=== PATIENT | male | born 1950 | race Caucasian/White ===

== ENCOUNTER → 2017-06-23 | Outpatient (CLI) | payer MEDICARE, OTHER ==
[2017-06-23 11:18] LABS: WESTERGREN SEDIMENTATION RATE 88 mm/hr (0-20)
[2017-06-23 11:42] LABS: RHEUMATOID FACTOR SCREEN NEGATIVE (NEGATIVE); RHEUMATOID FACTOR TRIGGER LESS THAN 10.0 IU/ML (0.0-14.9)
[2017-06-26 16:23] LABS: ANA SCREEN NEG (NEG)
== END ==
LOC: CLAB 10:26
DX: M25.50 Pain in unspecified joint (principal)
CPT/HCPCS: 36415; 85652; 86038; 86140; 86430; 99213

== ENCOUNTER → 2017-07-04 | Outpatient (CLI) | payer MEDICARE, OTHER ==
[~2017-07-04] MED LIST: LIPI20TA PO; MEDR4PAK PO; MELO15TA20 PO; NAPR500T2 PO; PAXI10TA8 PO; PRED5TAB PO; PRIL20TA2 PO
[2017-07-04 15:34] LABS: AST (GOT) 17 U/L (15-37); BLOOD UREA NITROGEN 25 MG/DL (7-18); CALCIUM 9.3 MG/DL (8.5-10.1); CHLORIDE 104 MEQ/L (98-107); CREATININE 1.16 MG/DL (0.60-1.30); GLOMERULAR FILTRATION RATE 63 ML/MIN (>89); GLUCOSE,FASTING 88 MG/DL (74-99); SODIUM (NA) 142 MEQ/L (136-145)
[2017-07-04 15:37] LABS: ALKALINE PHOSPHATASE 86 U/L (45-117); ALT (GPT) 15 U/L (12-78); TOTAL BILIRUBIN ADULT 0.3 MG/DL (0.2-1.0); TOTAL PROTEIN 8.1 GM/DL (6.4-8.2)
== END ==
LOC: CLAB 14:52
PROVIDERS: ATTEND Family Medicine
DX: M35.3 Polymyalgia rheumatica (principal)
CPT/HCPCS: 36415; 80053

== ENCOUNTER → 2017-08-16 | Day surgery (SDC) | payer MEDICARE, OTHER ==
[~2017-08-16] VITALS: Ht 193 cm; Wt 121.1 kg
[~2017-08-16] MED LIST changes: +CHLORHEXIDINE GLUCONATE 2 % 1 PACK (2 CLOTHS) TOPICAL PRN; +DO NOT ADM ANY ANTICOAGULANT DRUGS PRN; +LACTATED RINGER'S 1000 ML IV PRN; +LIDOCAINE HCL 1% PF 5 ML SYRINGE OTHER ONE; -MEDR4PAK PO; -MELO15TA20 PO; +METOPROLOL TARTRATE 25 MG TAB PO PRN; +MIDAZOLAM HCL 2 MG/2 ML VIAL ONE; -NAPR500T2 PO; +ONDANSETRON HCL 4 MG/2 ML VIAL IV ONE; +ONDANSETRON HCL 4 MG/2 ML VIAL IV PUSH PRN; +PARO30TA2 PO; -PAXI10TA8 PO; +PERC5TAB12 PO; +POVIDONE IODINE 5% (ANTISEPSIS KIT) 4 APPLICATIONS EACH NARE PRN; +PROPOFOL 200 MG/20 ML AMP IV ONE; +SODIUM CHLORID 0.9% 500 ML IV PRN; +methylPREDNISolone SOD SUCC 125 MG/2 ML VIAL ONE; +oxyCODONE/ACETAMINOPHEN 5 MG/325 MG TAB PO PRN
[2017-08-16 07:44] LABS: AUTOMATED NEUTROPHIL # 5.6 TH/MM3 (1.8-7.7); BASOPHIL % 0.1 % (0.0-2.0); EOSINOPHIL % 0.4 % (0.0-4.0); HEMATOCRIT 42.3 % (39.0-51.0); HEMOGLOBIN 14.3 GM/DL (13.0-17.0); LYMPH % 8.9 % (9.0-44.0); LYMPHOCYTE # 0.6 TH/MM3 (1.0-4.8); MEAN CELL VOLUME 101.8 FL (80.0-100.0); MEAN CORPUSCULAR HEMOGLOBIN 34.5 PG (27.0-34.0); MEAN CORPUSCULAR HGB CONC 33.9 % (32.0-36.0); MEAN PLATELET VOLUME 8.4 FL (7.0-11.0); MONO % 6.4 % (0.0-8.0); MONOCYTE # 0.4 TH/MM3 (0-0.9); NEUT % 84.2 % (16.0-70.0); PLATELET COUNT 187 TH/MM3 (150-450); RED BLOOD COUNT 4.16 MIL/MM3 (4.50-5.90); RED CELL DISTRIBUTION WIDTH 16.6 % (11.6-17.2); WHITE BLOOD COUNT 6.6 TH/MM3 (4.0-11.0)
--- NOTE | 2017-08-16 07:51 | RADRPT ---
EXAM DATE/TIME: 08/16/2017 07:17 [facility] COMPARISON: No previous studies available for comparison. INDICATIONS : Pre op left side ESWL. MEDICAL HISTORY : None. SURGICAL HISTORY : None. ENCOUNTER: Initial ACUITY: 1 day PAIN SCORE: 0/10 LOCATION: Left Abdomen FINDINGS: Stool overlies the kidneys making it difficult to identify discrete calculi. CONCLUSION: Renal calculi not clearly visualized. Gregory Carranza MD on August 16, 2017 at 7:48 Board Certified Radiologist. This report was verified electronically.
--- NOTE | 2017-08-16 10:31 | PD.OP ---
Operative Report Date of Surgery: Aug 16, 2017 Preoperative Diagnosis: (1) Renal calculus, left Postoperative Diagnosis: (1) Renal calculus, left Procedure: Extracorporeal shockwave lithotripsy left renal calculus Anesthesia: General Surgeon: Mohan Hester Quarantine Inspector(s): None Operation and Findings: Indication for procedure: Case of a pleasant 66-year-old gentleman with a 9 mm left renal calculus who presents today to undergo shockwave lithotripsy. Operative procedure in detail: Patient was brought to the operating room suite and placed supine on the lithotripsy table. He was then placed under general anesthesia. After appropriate timeout was undertaken I proceeded with localizing the patient's left renal calculus with fluoroscopy. The patient subsequently underwent extracorporeal shockwave lithotripsy utilizing the [employer] mobile lithotripsy unit. The patient received a total of 3000 shocks with a maximum power level setting of 6. At the conclusion of the procedure the stone spread out considerably consistent with fragmentation. He tolerated the procedure without complications and was transferred to the PACU in satisfactory condition. Mohan Hester MD Aug 16, 2017 10:30
[2017-08-16 11:40] VITALS: BP 136/70; PULSE 70; RESP 18; TEMP 97.4; O2SAT 96
--- NOTE | 2017-08-16 23:02 | EKG ---
Date Performed: 08/16/2017 Time Performed: 07:08:44 PTAGE: 66 years EKG: Sinus rhythm RIGHT BUNDLE BRANCH BLOCK ABNORMAL ECG NO PREVIOUS TRACING DOCTOR: Luisito Subramanian Interpretating Date/Time 08/16/2017 23:01:35
== END | disposition home or self-care (01) ==
LOC: EDUNIT# 06-28 07:30 → HSDC 06:31
PROVIDERS: ATTEND Urology
DX: N20.0 Calculus of kidney (principal); I45.10 Unspecified right bundle-branch block; R94.31 Abnormal electrocardiogram [ECG] [EKG]
CPT/HCPCS: 00873; 50590; 74018; 85025; 93005; J2250; J2405; J2930; J3010; J7120

== ENCOUNTER 2017-08-18 21:26 | Emergency (ER) | payer MEDICARE, OTHER ==
[~2017-08-18] VITALS: Ht 193 cm; Wt 115.0 kg
[~2017-08-18 21:26] MED LIST changes: -CHLORHEXIDINE GLUCONATE 2 % 1 PACK (2 CLOTHS) TOPICAL PRN; -DO NOT ADM ANY ANTICOAGULANT DRUGS PRN; -LACTATED RINGER'S 1000 ML IV PRN; -LIDOCAINE HCL 1% PF 5 ML SYRINGE OTHER ONE; -METOPROLOL TARTRATE 25 MG TAB PO PRN; -MIDAZOLAM HCL 2 MG/2 ML VIAL ONE; -ONDANSETRON HCL 4 MG/2 ML VIAL IV ONE; -ONDANSETRON HCL 4 MG/2 ML VIAL IV PUSH PRN; -POVIDONE IODINE 5% (ANTISEPSIS KIT) 4 APPLICATIONS EACH NARE PRN; -PROPOFOL 200 MG/20 ML AMP IV ONE; -SODIUM CHLORID 0.9% 500 ML IV PRN; -methylPREDNISolone SOD SUCC 125 MG/2 ML VIAL ONE; -oxyCODONE/ACETAMINOPHEN 5 MG/325 MG TAB PO PRN
[2017-08-18 21:44] VITALS: BP 147/84; PULSE 70; RESP 18; TEMP 97.8; O2SAT 97
[2017-08-18 22:39] VITALS: BP 160/83; PULSE 60; RESP 18; O2SAT 98
[2017-08-18] MEDS ORDERED: SODIUM CHLOR 0.9% 1000 ML INJ 1,000 ML IV SCH (22:50)
[2017-08-18] MEDS ORDERED: KETOROLAC TROMETHAMINE 30 MG/ML (IVP) VIAL IVP ONE (23:00)
[2017-08-18] MEDS ORDERED: SODIUM CHLORIDE 0.9% FLUSH 10 ML FLUSH IV FLUSH PRN (23:00)
[2017-08-18] MEDS ORDERED: ONDANSETRON HCL 4 MG/2 ML VIAL IVP ONE (23:00)
[2017-08-18] MEDS ORDERED: MORPHINE SULFATE 4 MG/ML INJ IV PUSH ONE (23:00)
[2017-08-19 00:13] LABS: AUTOMATED NEUTROPHIL # 10.5 TH/MM3 (1.8-7.7); BASOPHIL % 0.1 % (0.0-2.0); HEMATOCRIT 47.3 % (39.0-51.0); HEMOGLOBIN 15.9 GM/DL (13.0-17.0); LYMPH % 3.4 % (9.0-44.0); LYMPHOCYTE # 0.4 TH/MM3 (1.0-4.8); MEAN CELL VOLUME 102.3 FL (80.0-100.0); MEAN CORPUSCULAR HEMOGLOBIN 34.4 PG (27.0-34.0); MEAN CORPUSCULAR HGB CONC 33.6 % (32.0-36.0); MEAN PLATELET VOLUME 9.2 FL (7.0-11.0); MONO % 7.2 % (0.0-8.0); MONOCYTE # 0.8 TH/MM3 (0-0.9); NEUT % 89.3 % (16.0-70.0); PLATELET COUNT 192 TH/MM3 (150-450); RED BLOOD COUNT 4.63 MIL/MM3 (4.50-5.90); RED CELL DISTRIBUTION WIDTH 16.4 % (11.6-17.2); WHITE BLOOD COUNT 11.8 TH/MM3 (4.0-11.0)
[2017-08-19 00:36] LABS: ALBUMIN 3.9 GM/DL (3.4-5.0); ALT (GPT) 37 U/L (12-78); AST (GOT) 20 U/L (15-37); BICARBONATE 28.3 MEQ/L (21.0-32.0); BLOOD UREA NITROGEN 22 MG/DL (7-18); CALCIUM 9.5 MG/DL (8.5-10.1); CHLORIDE 101 MEQ/L (98-107); CREATININE 1.68 MG/DL (0.60-1.30); GLOMERULAR FILTRATION RATE 41 ML/MIN (>89); GLUCOSE,RANDOM 171 MG/DL (74-106); SODIUM (NA) 140 MEQ/L (136-145)
[2017-08-19 00:39] LABS: ALKALINE PHOSPHATASE 101 U/L (45-117); TOTAL BILIRUBIN ADULT 0.6 MG/DL (0.2-1.0); TOTAL PROTEIN 8.1 GM/DL (6.4-8.2)
--- NOTE | 2017-08-19 00:48 | RADRPT ---
EXAM DATE/TIME: 08/18/2017 23:48 [facility] COMPARISON: No previous studies available for comparison. INDICATIONS : Left flank pain post lithotripsy two days ago. ORAL CONTRAST: No oral contrast ingested. RADIATION DOSE: 29.15 CTDIvol (mGy) ; Patient body habitus MEDICAL HISTORY : Renal calculi. Carcinoma, prostate. Hernia, inguinal. SURGICAL HISTORY : Prostatectomy. ENCOUNTER: Initial ACUITY: 1 day PAIN SCALE: 6/10 LOCATION: Left flank TECHNIQUE: Volumetric scanning of the abdomen and pelvis was performed. Using automated exposure control and ad justment of the mA and/or kV according to patient size, radiation dose was kept as low as reasonably achievable to obtain optimal diagnostic quality images. DICOM format image data is available electro nically for review and comparison. FINDINGS: LOWER LUNGS: Linear atelectasis or scarring posteriorly in both lung bases. LIVER: Punctate hypodensity in the left hepatic lobe is most characteristic of a benign cyst. Granulomatous type calcification in the right hepatic lobe.. There is no dilation of the biliary tree. No calcifi ed gallstones. SPLEEN: Normal size without lesion. Granulomatous type calcifications PANCREAS: Within normal limits. KIDNEYS: Bilateral sub-centimeter renal calculi. On the left, there is some perinephric stranding and pelvocal iectasis of the collecting system with some hydroureter. A series of stones in the left distal ureter with the more proximal stone measuring approximately 4 mm in diameter and a second stone just above the UVJ measuring approximately 5 mm in diameter.. ADRENAL GLANDS: Within normal limits. VASCULAR: There is no aortic aneurysm. BOWEL/MESENTERY: The stomach, small bowel, and colon demonstrate no acute abnormality. There is no free intraperitone al air or fluid. Severe diverticular disease of the descending and sigmoid colon without concomitant evidence of diverticulitis. ABDOMINAL WALL: Within normal limits. RETROPERITONEUM: There is no lymphadenopathy. BLADDER: No wall thickening or mass. REPRODUCTIVE: Patient appears to have had a prostatectomy. INGUINAL: There is no lymphadenopathy or hernia. MUSCULOSKELETAL: Within normal limits for patient age. CONCLUSION: 1. Bilateral subcentimeter renal calculi, left greater than right. 2. Perinephric stranding on the left may be associated with the recent lithotripsy. However, there is also some pelvocaliectasis and hydroureter with a series of 2 stones in the distal left ureter. More proximal stone at the level of the acetabulum measures 4 mm with a distal stone just proximal to the UVJ measuring 5 mm. 3. Severe diverticular disease of the descending and sigmoid colon without diverticulitis. 4. Probable sub-centimeters cyst in the left hepatic lobe. Justice Pedraza MD on August 19, 2017 at 0:40 Board Certified Radiologist. This report was verified electronically.
[2017-08-19 00:54] LABS: BILIRUBIN, URINE NEG (NEG); BLOOD, URINE MOD (NEG); GLUCOSE,URINE NEG (NEG); KETONE, URINE NEG (NEG); MUCUS URINE FEW /lpf (OCC); NITRITE,URINE NEG (NEG); PH, URINE 5.5 (5.0-8.5); URINE COLOR YELLOW (YELLW/STRAW); URINE LEUKOCYTE ESTERASE NEG (NEG)
[2017-08-19 00:57] VITALS: BP 118/71; PULSE 61; RESP 18; O2SAT 97
--- NOTE | 2017-08-19 01:58 | PD ---
HPI Chief Complaint: Flank/Kidney Pain Time Seen by Provider: 22:40 Travel History International Travel<30 days: No Contact w/Intl Traveler<30days: No Traveled to known affect area: No History of Present Illness HPI Patient is a 66 year old male who comes in complaining of left flank pain. He had lithotripsy performed on Monday and says he was feeling ok until today when he started to have sharp pains to his left flank. He has a prescription for Percocet which she has not filled yet. He has just been taking Tylenol for pain. However the pain got so bad this afternoon that he took half of 1 of his 's Percocets from a previous surgery. He has had some nausea and vomiting. He denies no fever or chills. He says he has noticed several small stones in his urine. Severity is moderate. PFSH Past Medical History Cancer: Yes (PROSTATE) Cardiovascular Problems: No Diabetes: No Diminished Hearing: No Endocrine: No Gastrointestinal Disorders: Yes (GERD) Genitourinary: No Hepatitis: No Hiatal Hernia: Yes Immune Disorder: Yes (POLYMYALGIA RHUEMATICA) Musculoskeletal: Yes (JOINT PAIN) Neurologic: No Psychiatric: Yes (OCD) Reproductive: No Respiratory: No Thyroid Disease: No Tetanus Vaccination: < 5 Years Influenza Vaccination: No Past Surgical History Abdominal Surgery: Yes (UMBILICAL AND INGUINAL HERNIA REPAIR) AICD: No Cardiac Surgery: No Ear Surgery: No Endocrine Surgery: No Eye Surgery: No Genitourinary Surgery: Yes (PROSTATE REMOVAL) Joint Replacement: No Pacemaker: No Thoracic Surgery: No Other Surgery: Yes (lithotrosy) Social History Alcohol Use: No Tobacco Use: No Substance Use: No Allergies-Medications (Allergen,Severity, Reaction): Coded Allergies: oseltamivir (Unverified Allergy, Unknown, swelling in lips, 08/18/17) Reported Meds & Prescriptions Reported Meds & Active Scripts Active Prednisone 5 Mg Tab 15 Mg PO DAILY Take 3 tablets (15 mg) PO daily. Prilosec (Omeprazole Magnesium) 20 Mg Tab 1 Tab PO DAILY Lipitor (Atorvastatin Calcium) 20 Mg Tab 20 Mg PO HS Reported Paroxetine (Paroxetine HCl) 30 Mg Tab 30 Mg PO DAILY Review of Systems Except as stated in HPI: all other systems reviewed are Neg General / Constitutional: No: Fever, Chills HENT: No: Headaches, Lightheadedness Cardiovascular: No: Chest Pain or Discomfort Respiratory: No: Shortness of Breath Gastrointestinal: Positive: Nausea Genitourinary: Positive: Flank Pain Musculoskeletal: No: Edema Skin: No Rash, No Itching, No Change in Pigmentation Neurologic: No: Weakness, Dizziness Physical Exam Narrative GENERAL: Awake and alert, in no acute distress. SKIN: Focused skin assessment warm/dry. No wounds or signs of infection. HEAD: Atraumatic. Normocephalic. EYES: Pupils equal and round. No scleral icterus. ENT: No nasal bleeding or discharge. Mucous membranes pink and moist. NECK: Trachea midline. No JVD. CARDIOVASCULAR: Regular rate and rhythm. No murmur appreciated. RESPIRATORY: No accessory muscle use. Clear to auscultation. Breath sounds equal bilaterally. GASTROINTESTINAL: Abdomen soft, non-tender, nondistended. Mild left CVA tenderness. MUSCULOSKELETAL: No obvious deformities. No clubbing. No cyanosis. No edema. NEUROLOGICAL: Awake and alert. No obvious cranial nerve deficits. Motor grossly within normal limits. Normal speech. PSYCHIATRIC: Appropriate mood and affect; insight and judgment normal. Data Data Last Documented VS Vital Signs Date Time Temp Pulse Resp B/P (MAP) Pulse Ox O2 Delivery O2 Flow Rate FiO2 08/19/17 00:57 61 18 118/71 (87) 97 08/18/17 22:39 Room Air 08/18/17 21:44 97.8 Orders Orders Complete Blood Count With Diff (08/18/17 22:50) Comprehensive Metabolic Panel (08/18/17 22:50) Urinalysis - C+S If Indicated (08/18/17 22:50) Ct Abd/Pel W/O Iv Contrast (08/18/17 22:50) Iv Access Insert/Monitor (08/18/17 22:50) Ecg Monitoring (08/18/17 22:50) Oximetry (08/18/17 22:50) Morphine Inj (Morphine Inj) (08/18/17 23:00) Ondansetron Inj (Zofran Inj) (08/18/17 23:00) Sodium Chlor 0.9% 1000 Ml Inj (Ns 1000 M (08/18/17 22:50) Sodium Chloride 0.9% Flush (Ns Flush) (08/18/17 23:00) Ketorolac Inj (Toradol Inj) (08/18/17 23:00) Labs Laboratory Tests Test 08/18/17 23:20 08/19/17 00:14 White Blood Count 11.8 TH/MM3 Red Blood Count 4.63 MIL/MM3 Hemoglobin 15.9 GM/DL Hematocrit 47.3 % Mean Corpuscular Volume 102.3 FL Mean Corpuscular Hemoglobin 34.4 PG Mean Corpuscular Hemoglobin Concent 33.6 % Red Cell Distribution Width 16.4 % Platelet Count 192 TH/MM3 Mean Platelet Volume 9.2 FL Neutrophils (%) (Auto) 89.3 % Lymphocytes (%) (Auto) 3.4 % Monocytes (%) (Auto) 7.2 % Eosinophils (%) (Auto) 0.0 % Basophils (%) (Auto) 0.1 % Neutrophils # (Auto) 10.5 TH/MM3 Lymphocytes # (Auto) 0.4 TH/MM3 Monocytes # (Auto) 0.8 TH/MM3 Eosinophils # (Auto) 0.0 TH/MM3 Basophils # (Auto) 0.0 TH/MM3 CBC Comment DIFF FINAL Differential Comment Blood Urea Nitrogen 22 MG/DL Creatinine 1.68 MG/DL Random Glucose 171 MG/DL Total Protein 8.1 GM/DL Albumin 3.9 GM/DL Calcium Level 9.5 MG/DL Alkaline Phosphatase 101 U/L Aspartate Amino Transf (AST/SGOT) 20 U/L Alanine Aminotransferase (ALT/SGPT) 37 U/L Total Bilirubin 0.6 MG/DL Sodium Level 140 MEQ/L Potassium Level 3.8 MEQ/L Chloride Level 101 MEQ/L Carbon Dioxide Level 28.3 MEQ/L Anion Gap 11 MEQ/L Estimat Glomerular Filtration Rate 41 ML/MIN Urine Color YELLOW Urine Turbidity CLEAR Urine pH 5.5 Urine Specific [place] 1.025 Urine Protein NEG mg/dL Urine Glucose (UA) NEG mg/dL Urine Ketones NEG mg/dL Urine Occult Blood MOD Urine Nitrite NEG Urine Bilirubin NEG Urine Urobilinogen LESS THAN 2.0 MG/DL Urine Leukocyte Esterase NEG Urine RBC 24 /hpf Urine WBC 1 /hpf Urine Mucus FEW /lpf Microscopic Urinalysis Comment CULT NOT INDICATED MDM Medical Decision Making Medical Screen Exam Complete: Yes Emergency Medical Condition: Yes Medical Record Reviewed: Yes Differential Diagnosis UTI vs renal stone vs pyelonephritis Narrative Course Patient is a 66 year old male who comes in complaining of left flank pain after lithotripsy performed Monday. Exam shows mild left CVA tenderness. IV established, labs sent. Labs show a Cr of 1.68. Urinalysis is negative for UTI. CT abd/pelvis shows two stones obstructing the left ureter. Last 48 hours Impressions Abdomen/Pelvis CT 08/18/17 2250 Signed Impressions: Service Date/Time: Friday, August 18, 2017 23:48 - CONCLUSION: 1. Bilateral subcentimeter renal calculi, left greater than right. 2. Perinephric stranding on the left may be associated with the recent lithotripsy. However, there is also some pelvocaliectasis and hydroureter with a series of 2 stones in the distal left ureter. More proximal stone at the level of the acetabulum measures 4 mm with a distal stone just proximal to the UVJ measuring 5 mm. 3. Severe diverticular disease of the descending and sigmoid colon without diverticulitis. 4. Probable sub-centimeters cyst in the left hepatic lobe. Justice Pedraza MD I spoke with Dr. Hester of urology (patient's urologist) who says if his pain is controlled, he can follow up in the office. Patient given Toradol, IVF, Morphine. He is resting comfortably. He is advised to have his prescription for Percocet filled. Advised to drink plenty of water. Advised to follow up with Dr Hester and return to the ED as needed for any worsening symptoms. Diagnosis Primary Impression: Renal stone Patient Instructions: General Instructions, Kidney Stones (ED) Additional Instructions: Take pain medicine as needed. Drink plenty of fluids. Follow up with Dr. Hester. Disposition: 01 DISCHARGE HOME Condition: Stable Lisa Morales MD Aug 19, 2017 01:58
== END 2017-08-19 02:27 | disposition home or self-care (01) ==
LOC: NEPC 21:26
DX: N20.0 Calculus of kidney (principal)
CPT/HCPCS: 74176; 80053; 81001; 85025; 96361; 96374; 96375; 99284; J1885; J2270; J2405; J7030

== ENCOUNTER 2017-08-23 17:36 | Emergency (ER) | payer MEDICARE, OTHER ==
[~2017-08-23 17:36] MED LIST changes: -PERC5TAB12 PO
[2017-08-23 17:51] VITALS: BP 123/74; PULSE 76; RESP 18; TEMP 98.7; O2SAT 97
--- NOTE | 2017-08-23 18:24 | RADRPT ---
EXAM DATE/TIME: 08/23/2017 18:04 [facility] COMPARISON: No previous studies available for comparison. INDICATIONS : Constipation. MEDICAL HISTORY : None. SURGICAL HISTORY : Recent lithotripsy. ENCOUNTER: Initial ACUITY: 4 - 6 days PAIN SCORE: 10/10 LOCATION: Left kidney. FINDINGS: Bilateral renal calculi are stable since August 16. Mild to moderate constipation noted. No free air. CONCLUSION: 1. Mild to moderate constipation. No free air. Raul Wheeler MD on August 23, 2017 at 18:17 Board Certified Radiologist. This report was verified electronically.
[2017-08-23 18:56] LABS: AUTOMATED NEUTROPHIL # 6.4 TH/MM3 (1.8-7.7); BASOPHIL % 0.3 % (0.0-2.0); EOSINOPHIL # 0.1 TH/MM3 (0-0.4); EOSINOPHIL % 1.7 % (0.0-4.0); HEMATOCRIT 41.8 % (39.0-51.0); HEMOGLOBIN 14.8 GM/DL (13.0-17.0); LYMPH % 10.7 % (9.0-44.0); LYMPHOCYTE # 0.9 TH/MM3 (1.0-4.8); MEAN CELL VOLUME 101.4 FL (80.0-100.0); MEAN CORPUSCULAR HEMOGLOBIN 35.9 PG (27.0-34.0); MEAN CORPUSCULAR HGB CONC 35.3 % (32.0-36.0); MEAN PLATELET VOLUME 8.6 FL (7.0-11.0); MONO % 8.8 % (0.0-8.0); MONOCYTE # 0.7 TH/MM3 (0-0.9); NEUT % 78.5 % (16.0-70.0); PLATELET COUNT 175 TH/MM3 (150-450); RED BLOOD COUNT 4.12 MIL/MM3 (4.50-5.90); WHITE BLOOD COUNT 8.2 TH/MM3 (4.0-11.0)
[2017-08-23 19:20] LABS: ALBUMIN 3.1 GM/DL (3.4-5.0); AST (GOT) 8 U/L (15-37); BICARBONATE 28.3 MEQ/L (21.0-32.0); BLOOD UREA NITROGEN 25 MG/DL (7-18); CALCIUM 9.7 MG/DL (8.5-10.1); CHLORIDE 100 MEQ/L (98-107); CREATININE 2.13 MG/DL (0.60-1.30); GLOMERULAR FILTRATION RATE 31 ML/MIN (>89); GLUCOSE,RANDOM 98 MG/DL (74-106); SODIUM (NA) 138 MEQ/L (136-145)
[2017-08-23 19:21] LABS: ALT (GPT) 18 U/L (12-78)
[2017-08-23 19:23] LABS: ALKALINE PHOSPHATASE 79 U/L (45-117); TOTAL BILIRUBIN ADULT 0.5 MG/DL (0.2-1.0)
[2017-08-23] MEDS ORDERED: PERC7.5T13 PO (21:13)
--- NOTE | 2017-08-23 22:03 | PD ---
HPI Chief Complaint: GI Complaint Time Seen by Provider: 21:33 Travel History International Travel<30 days: No Contact w/Intl Traveler<30days: No Traveled to known affect area: No History of Present Illness HPI 66 years old male complains of abdominal pain, constipation. Patient was seen in emergency room 5 days ago with diagnosis of kidney stone. Patient was given prescription for Percocet and advised to follow with neurologist. Patient states that he has persistent left abdominal pain since discharge. Patient also complains of constipation from the Percocet. Patient denies any headache. Patient denies any chest pain or shortness of breath. Patient stated the abdominal pain is cramping pain is sharp pain localized to left side abdomen. Patient denies any pain radiation. Patient denies any fever chills. Patient denies dysuria or frequency. PFSH Past Medical History Cancer: Yes (PROSTATE) Cardiovascular Problems: No Diabetes: No Diminished Hearing: No Endocrine: No Gastrointestinal Disorders: Yes (GERD) Genitourinary: No Hepatitis: No Hiatal Hernia: Yes Immune Disorder: Yes (POLYMYALGIA RHUEMATICA) Musculoskeletal: Yes (JOINT PAIN) Neurologic: No Psychiatric: Yes (OCD) Reproductive: No Respiratory: No Thyroid Disease: No Past Surgical History Abdominal Surgery: Yes (UMBILICAL AND INGUINAL HERNIA REPAIR) AICD: No Cardiac Surgery: No Ear Surgery: No Endocrine Surgery: No Eye Surgery: No Genitourinary Surgery: Yes (PROSTATE REMOVAL) Joint Replacement: No Pacemaker: No Thoracic Surgery: No Other Surgery: Yes (lithotrosy) Social History Alcohol Use: No Tobacco Use: No Substance Use: Yes (HX OF MARIJUANA) Allergies-Medications (Allergen,Severity, Reaction): Coded Allergies: oseltamivir (Unverified Allergy, Unknown, swelling in lips, 08/23/17) Reported Meds & Prescriptions Reported Meds & Active Scripts Active Prednisone 5 Mg Tab 15 Mg PO DAILY Take 3 tablets (15 mg) PO daily. Prilosec (Omeprazole Magnesium) 20 Mg Tab 1 Tab PO DAILY Lipitor (Atorvastatin Calcium) 20 Mg Tab 20 Mg PO HS Reported Percocet (Oxycodone-Acetaminophen) 7.5-325 mg Tab 1 Tab PO Q4H PRN Paroxetine (Paroxetine HCl) 30 Mg Tab 30 Mg PO DAILY Review of Systems General / Constitutional: No: Fever Eyes: No: Visual changes HENT: No: Headaches Cardiovascular: No: Chest Pain or Discomfort Respiratory: No: Shortness of Breath Gastrointestinal: Positive: Abdominal Pain, Constipation Genitourinary: No: Dysuria Musculoskeletal: No: Pain Skin: No Rash Neurologic: No: Weakness Psychiatric: No: Depression Endocrine: No: Polydipsia Hematologic/Lymphatic: No: Easy Bruising Physical Exam Narrative GENERAL: Well-nourished, well-developed patient. SKIN: Focused skin assessment warm/dry. HEAD: Normocephalic. EYES: No scleral icterus. No injection or drainage. NECK: Supple, trachea midline. No JVD or lymphadenopathy. CARDIOVASCULAR: Regular rate and rhythm without murmurs, gallops, or rubs. RESPIRATORY: Breath sounds equal bilaterally. No accessory muscle use. GASTROINTESTINAL: Abdomen soft, nondistended. Patient has mild to moderate tenderness on palpation left side abdomen. No rebound tenderness. No mass. MUSCULOSKELETAL: No cyanosis, or edema. BACK: Nontender without obvious deformity. No CVA tenderness. Neurologic exam normal. Data Data Last Documented VS Vital Signs Date Time Temp Pulse Resp B/P (MAP) Pulse Ox O2 Delivery O2 Flow Rate FiO2 08/23/17 17:51 98.7 76 18 123/74 (90) 97 Orders Orders Complete Blood Count With Diff (08/23/17 17:54) Comprehensive Metabolic Panel (08/23/17 17:54) Abdomen, Kub Only (08/23/17 17:54) Sodium Chlorid 0.9% 500 Ml Inj (Ns 500 M (08/23/17 22:15) Sodium Chlor 0.9% 1000 Ml Inj (Ns 1000 M (08/23/17 22:15) Labs Laboratory Tests Test 08/23/17 18:46 White Blood Count 8.2 TH/MM3 Red Blood Count 4.12 MIL/MM3 Hemoglobin 14.8 GM/DL Hematocrit 41.8 % Mean Corpuscular Volume 101.4 FL Mean Corpuscular Hemoglobin 35.9 PG Mean Corpuscular Hemoglobin Concent 35.3 % Red Cell Distribution Width 16.0 % Platelet Count 175 TH/MM3 Mean Platelet Volume 8.6 FL Neutrophils (%) (Auto) 78.5 % Lymphocytes (%) (Auto) 10.7 % Monocytes (%) (Auto) 8.8 % Eosinophils (%) (Auto) 1.7 % Basophils (%) (Auto) 0.3 % Neutrophils # (Auto) 6.4 TH/MM3 Lymphocytes # (Auto) 0.9 TH/MM3 Monocytes # (Auto) 0.7 TH/MM3 Eosinophils # (Auto) 0.1 TH/MM3 Basophils # (Auto) 0.0 TH/MM3 CBC Comment DIFF FINAL Differential Comment Blood Urea Nitrogen 25 MG/DL Creatinine 2.13 MG/DL Random Glucose 98 MG/DL Total Protein 8.0 GM/DL Albumin 3.1 GM/DL Calcium Level 9.7 MG/DL Alkaline Phosphatase 79 U/L Aspartate Amino Transf (AST/SGOT) 8 U/L Alanine Aminotransferase (ALT/SGPT) 18 U/L Total Bilirubin 0.5 MG/DL Sodium Level 138 MEQ/L Potassium Level 4.4 MEQ/L Chloride Level 100 MEQ/L Carbon Dioxide Level 28.3 MEQ/L Anion Gap 10 MEQ/L Estimat Glomerular Filtration Rate 31 ML/MIN MDM Medical Decision Making Medical Screen Exam Complete: Yes Emergency Medical Condition: Yes Interpretation(s) Last Impressions Abdomen X-Ray 08/23/17 0374 Signed Impressions: Service Date/Time: Wednesday, August 23, 2017 18:04 - CONCLUSION: 1. Mild to moderate constipation. No free air. Raul Wheeler MD 21:58 PM. CBC WBC 8.2. Hemoglobin 14 point hematocrit 41.8. MCV 101.4. 78 neutrophil. BUN 25. Creatinine 2.13. Differential Diagnosis Differential diagnosis including nephrolithiasis , constipation, ileus, dehydration, electrolyte imbalance, acute kidney injury. Narrative Course 66 years old male with persistent abdominal pain from kidney stone and constipation from Percocet. Patient's kidney function is worsening since last visit. I spoke with urologist. Advised medical admission with urology consultation. Normal saline solution 1 25 cc an hour. 2300 p.m. Patient passes the stone. Patient's pain-free now. Patient will be sent home with GoLYTELY and follow up with urologist. Diagnosis Primary Impression: Nephrolithiasis Additional Impressions: Acute kidney injury Constipation Qualified Codes: K59.03 - Drug induced constipation Admitting Information Admitting Physician Requests: Admit Patient Instructions: General Instructions Additional Instructions: Encourage p.o. fluid. GoLYTELY as directed. Follow-up with personal physician. Return if persistent problem or worse. Med/Other Pt SpecificInfo: Prescription(s) given Scripts Peg-Electrolytes (Golytely 236 gm) 4,000 Ml Soln 4000 ML PO ONCE for Bowel Cleanser, #1 CONTAINER 0 Refills Prov: Wisam Taylor MD 08/23/17 Disposition: 01 DISCHARGE HOME Condition: Stable Wisam Taylor MD Aug 23, 2017 22:03
[2017-08-23] MEDS ORDERED: SODIUM CHLORID 0.9% 500 ML INJ 500 ML IV ONE (22:15)
[2017-08-23] MEDS ORDERED: SODIUM CHLOR 0.9% 1000 ML INJ 1,000 ML IV SCH (22:15)
[2017-08-23] MEDS ORDERED: COLY4000S PO (23:02)
== END 2017-08-23 23:54 | disposition home or self-care (01) ==
LOC: NED 17:36 → NEPD 23:54
DX: N20.0 Calculus of kidney (principal); N17.9 Acute kidney failure, unspecified; K59.03 Drug induced constipation; K21.9 Gastro-esophageal reflux disease without esophagitis; M35.3 Polymyalgia rheumatica; Z85.46 Personal history of malignant neoplasm of prostate
CPT/HCPCS: 74018; 80053; 85025; 99284; J7030; J7040

== ENCOUNTER → 2017-09-04 | Outpatient (CLI) | payer MEDICARE, OTHER ==
[~2017-09-04] MED LIST changes: +COLY4000S PO; +PERC7.5T13 PO
[2017-09-04 12:31] LABS: BICARBONATE 29.3 MEQ/L (21.0-32.0); CALCIUM 8.8 MG/DL (8.5-10.1); CREATININE 1.25 MG/DL (0.60-1.30)
== END ==
LOC: CLAB 11:23
PROVIDERS: ATTEND Internal Medicine Rheumatology
DX: M35.3 Polymyalgia rheumatica (principal); N28.9 Disorder of kidney and ureter, unspecified; Z79.52 Long term (current) use of systemic steroids; Z68.29 Body mass index [BMI] 29.0-29.9, adult
CPT/HCPCS: 36415; 80048

== ENCOUNTER → 2017-09-08 | Outpatient (CLI) | payer MEDICARE, OTHER | LOC: CLAB 10:15 | PROVIDERS: ATTEND Urology | DX: N20.0 Calculus of kidney (principal) | CPT/HCPCS: 36415; 84153 ==